=== PATIENT | male | born 1955 | race African-American/Black ===

== ENCOUNTER 2018-05-17 | Emergency (ER) | payer MEDICAID ==
[~2018-05-17] VITALS: Ht 175.3 cm; Wt 74.0 kg
[2018-05-17 09:55] VITALS: BP 184/84
== END 2018-05-17 09:57 | disposition home or self-care (01) ==
LOC: ER
DX: T18.12 Food in esophagus (principal); I10 Essential (primary) hypertension; X58.XXXD Exposure to other specified factors, subsequent encounter
CPT/HCPCS: 70360; 99284

== ENCOUNTER 2021-02-23 19:38 | Emergency (ER) | payer MEDICAID, MEDICARE ==
[~2021-02-23] VITALS: Ht 175.3 cm; Wt 70.0 kg
[2021-02-24 00:10] VITALS: BP 158/77
== END 2021-02-24 00:11 | disposition home or self-care (01) ==
LOC: ER 19:38
DX: I10 Essential (primary) hypertension (principal)
CPT/HCPCS: 99281

== ENCOUNTER 2021-03-23 09:49 | Emergency (ER) | payer MEDICARE, MEDICAID ==
[~2021-03-23] VITALS: Ht 175.3 cm; Wt 70.0 kg
[2021-03-23] MEDS ORDERED: HYDR-4133 PO (09:58)
[2021-03-23] MEDS ORDERED: LATA2.5D14 EACHEYE (09:58)
[2021-03-23] MEDS ORDERED: DORZ10DR9 OP (09:58)
[2021-03-23] MEDS ORDERED: AMLO10TA80 PO (09:58)
[2021-03-23 10:41] LABS: CHLORIDE 104 mEq/L (98-107)
[2021-03-23 10:43] LABS: BASOPHILS % 0.9 % (0.0-2.0); EOSINOPHILS % 3.3 % (0.0-5.0); HEMATOCRIT. 40.9 % (42.0-52.0); HEMOGLOBIN. 14.1 g/dL (14.0-18.0); LYMPHOCYTES % 41.5 % (20.0-50.0); MEAN CORPUSCULAR HEMOGLOBIN 31.4 pg (28.0-32.0); MEAN CORPUSCULAR VOLUME 91.4 fL (80.0-94.0); MEAN PLATELET VOLUME 9.1 fl (7.4-10.4); MONOCYTES % 10.3 % (2.0-8.0); PLATELET 161 x1000/uL (130-400); RED BLOOD CELL COUNT 4.48 mill/uL (4.7-6.1); RED CELL DISTRIBUTION WIDTH 13.6 % (11.6-14.6)
[2021-03-23 11:54] LABS: CLARITY URINE CLOUDY (CLEAR); COLOR URINE YELLOW (YELLOW); KETONES URINE 1+ (NEGATIVE); LEUKOCYTE ESTERASE URINE NEGATIVE (NEGATIVE); NITRITE URINE NEGATIVE (NEGATIVE); OCCULT BLOOD URINE NEGATIVE (NEGATIVE); PROTEIN URINE NEGATIVE (NEGATIVE); SPECIFIC GRAVITY URINE 1.007 (1.005-1.030)
[2021-03-23] MEDS ORDERED: POTASSIUM BICARB/CIT ACID 25 MEQ TABLET.EFF PO SCH (12:00)
[2021-03-23] MEDS ORDERED: HYDROMORPHONE HCL/PF 2MG/ML CPJ IV PRN (12:15)
[2021-03-23 12:50] VITALS: BP 131/80
== END 2021-03-23 13:13 | disposition home or self-care (01) ==
LOC: ER 09:49
DX: E86.0 Dehydration (principal); M79.662 Pain in left lower leg; R42 Dizziness and giddiness; M79.18 Myalgia, other site; I10 Essential (primary) hypertension; Z79.899 Other long term (current) drug therapy
CPT/HCPCS: 36415; 71045; 80053; 81003; 83880; 84484; 85025; 85379; 93005; 93970; 99284

== ENCOUNTER 2022-08-10 01:25 | Emergency (ER) | payer MEDICARE, MEDICAID ==
[~2022-08-10] VITALS: Ht 175.3 cm; Wt 67.0 kg
[~2022-08-10 01:25] MED LIST: AMLO10TA80 PO; DORZ10DR9 OP; HYDR-4133 PO; LATA2.5D14 EACHEYE
[2022-08-10 05:57] VITALS: BP 139/74
== END 2022-08-10 06:02 | disposition home or self-care (01) ==
LOC: ER 01:25
DX: I10 Essential (primary) hypertension (principal)
CPT/HCPCS: 99281